=== PATIENT | female | born 1960 | race Caucasian/White ===

== ENCOUNTER 2017-09-17 19:21 | Inpatient (IN) | payer MEDICAID, OTHER ==
[~2017-09-17] VITALS: Ht 162.6 cm; Wt 83.9 kg
[~2017-09-17 19:21] MED LIST: ATEN-60 PO; PANT40TA2 PO
[2017-09-17] MEDS ORDERED: ASPirin 81 mg TAB PO ONE (20:00)
[2017-09-17 20:25] LABS: Basophils # (auto) 0 uL; Basophils % (auto) 0.5 % (0.0-2.0); Eosinophils # (auto) 0.4 uL; Eosinophils % (auto) 5.7 % (0.0-7.0); Hematocrit 39.6 % (36.0-46.0); Hemoglobin 13.9 g/dL (12.2-16.2); Lymphocytes # (auto) 1.6 uL; Lymphocytes % (auto) 20.2 % (10.0-50.0); Mean Corpuscular Hemoglobin 33.2 pg (28.0-32.0); Mean Corpuscular Hgb Conc. 35.1 g/dL (32.0-36.0); Mean Corpuscular Volume 94.4 fL (80.0-100.0); Monocytes # (auto) 0.6 uL; Monocytes % (auto) 7.6 % (0.0-12.0); Neutrophils # (auto) 5.1 uL; Nucleated Red Blood Cells % 0.2 %; Platelet Count (auto) 79 10^3/uL (140-450); Red Cell Distribution Width 14.4 % (11.8-14.3); White Blood Cell 7.8 10^3/uL (4.4-10.8)
[2017-09-17 20:40] LABS: Albumin 3.1 g/dL (3.4-5.0); BUN/Creatinine Ratio 13.8; Bilirubin, Total 3.3 mg/dL (0.2-1.0); Calcium 9.5 mg/dL (8.5-10.1); Magnesium 2.2 mg/dL (1.6-2.6); Potassium 3.9 mmol/L (3.5-5.1)
[2017-09-17 20:41] LABS: INR 1.21 (0.9-1.15); Partial Thromboplastin Time 32.2 sec (23.78-33.04); Prothrombin Time 12.8 sec (9.27-12.13)
[2017-09-17] MEDS ORDERED: DEXTROSE (50%) 50ML SYRG IV ONE (21:30)
[2017-09-17] MEDS ORDERED: LABETALOL HCL 5 MG/ML ML 20ML VIAL IV ONE (22:30)
[2017-09-17] MEDS ORDERED: ACETAMINOPHEN 325 MG TAB PO PRN (23:00)
[2017-09-17] MEDS ORDERED: DEXTROSE (50%) 50ML SYRG IV PRN (23:00)
[2017-09-17] MEDS ORDERED: ONDANSETRON HCL 4 MG/2 ML VIAL IV PRN (23:00)
[2017-09-17] MEDS ORDERED: MORPHINE SULF INJ 2 MG/ML SYRINGE 1ML IV PRN ×2 (23:00)
[2017-09-17] MEDS ORDERED: TEMAZEPAM 15 MG CAP PO PRN (23:00)
[2017-09-17] MEDS ORDERED: NITROGLYCERIN 0.4 MG SL TAB SL PRN ×2 (23:00)
[2017-09-17] MEDS ORDERED: HYDROcodone-ACET 5/325MG TAB PO PRN (23:00)
[2017-09-17] MEDS ORDERED: IOHEXOL 350 MG/ML 100ML IJ ONE (23:02)
[2017-09-18] MEDS ORDERED: InsuLIN REG 1unit/0.01ml Soln (100units/ml) SC SCH
[2017-09-18] MEDS ORDERED: ACCU-CHEK COMFORT CURVE STRIP VI SCH
[2017-09-18] MEDS ORDERED: HYDROcodone-ACET 5/325MG TAB PO SCH (02:00)
[2017-09-18] MEDS ORDERED: ONDANSETRON HCL 4 MG/2 ML VIAL IV SCH (02:00)
[2017-09-18 04:55] VITALS: BP 150/90
[2017-09-18] MEDS ORDERED: PROPRANOLOL HCL 20 MG TAB PO SCH (06:00)
[2017-09-18] MEDS ORDERED: ASPirin 81 mg TAB PO SCH (10:00)
[2017-09-18] MEDS ORDERED: FAMOTIDINE 20 MG TAB PO SCH ×2 (10:00)
[2017-09-18] MEDS ORDERED: FUROSEMIDE 20 MG TAB PO SCH (10:00)
[2017-09-18] MEDS ORDERED: POTASSIUM CHLORIDE 8 MEQ TAB PO SCH (10:00)
[2017-09-18] MEDS ORDERED: PANTOPRAZOLE 40 MG TAB PO SCH (10:00)
[2017-09-18] MEDS ORDERED: FOLIC ACID 1 MG TAB PO SCH (10:00)
== END 2017-09-18 04:56 | disposition short-term general hospital (02) | DRG 310 ==
LOC: EDBD 19:21 → ER 19:21 → TELE 19:22 → TELE-WESTW 23:26
PROVIDERS: ADMIT Nurse Practitioner; ATTEND Internal Medicine Pulmonary Disease
DX: R00.2 Palpitations (principal); D69.6 Thrombocytopenia, unspecified; E16.2 Hypoglycemia, unspecified; I10 Essential (primary) hypertension; R00.0 Tachycardia, unspecified; J45.909 Unspecified asthma, uncomplicated; I25.10 Atherosclerotic heart disease of native coronary artery without angina pectoris; K21.9 Gastro-esophageal reflux disease without esophagitis; K70.30 Alcoholic cirrhosis of liver without ascites; Z79.899 Other long term (current) drug therapy; Z85.3 Personal history of malignant neoplasm of breast; Z88.8 Allergy status to other drugs, medicaments and biological substances
CPT/HCPCS: 36415; 71045; 71275; 80053; 82962; 83735; 83880; 84443; 84484; 85025; 85379; 85610; 85730; 93005; 94761; 96374; 96375; J2405